=== PATIENT | male | born 1980 | race Two or more races ===

== ENCOUNTER 2018-01-05 17:52 | Emergency (ER) | payer SELFPAY ==
[~2018-01-05] VITALS: Ht 180.3 cm; Wt 120.2 kg
[2018-01-05 18:03] VITALS: BP 156/85
[2018-01-05] MEDS ORDERED: Lidocaine 1% Plain 30 ml INJ ONE (18:30)
[2018-01-05] MEDS ORDERED: Bacitracin Oint UD TOPIC ONE (18:30)
[2018-01-05] MEDS ORDERED: Norco 5mg/325mg tab ORAL ONE (18:30)
[2018-01-05] MEDS ORDERED: Ketorolac 30mg Inj IM ONE (18:30)
[2018-01-05] MEDS ORDERED: Tetanus/Diptheria/Pertussis Vaccine 0.5ml Syr IM ONE (18:30)
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
[2018-01-05] MEDS ORDERED: IBUPROFEN800 MG ORAL (20:50)
[2018-01-05] MEDS ORDERED: AUGMENTIN 875-1 EAC1 ORAL (20:50)
[2018-01-05 21:15] VITALS: BP 156/85
== END 2018-01-05 21:15 | disposition home or self-care (01) ==
LOC: EMR 18:57
DX: S01.81XA Laceration without foreign body of other part of head, initial encounter (principal); Z23 Encounter for immunization; S01.511A Laceration without foreign body of lip, initial encounter; Y04.2XXA Assault by strike against or bumped into by another person, initial encounter; Y92.9 Unspecified place or not applicable
CPT/HCPCS: 12052; 70486; 90471; 90715; 99284; J1885; J2001